=== PATIENT | male | born 1965 | race Caucasian/White ===

== ENCOUNTER 2023-03-21 18:36 | Emergency (ER) | payer MEDICAID ==
[~2023-03-21] VITALS: Ht 165.1 cm; Wt 89.4 kg
[2023-03-21] MEDS ORDERED: TDAP [DIPH/PERTUSSIS/TET] 0.5 ML VIAL IM ONE ×2 (19:11→19:30)
[2023-03-21] MEDS ORDERED: LIDOCAINE 1% INJ 50 ML MDV IJ ONE (20:26)
[2023-03-21] MEDS ORDERED: AMOX-430 PO (21:08)
[2023-03-21 21:50] VITALS: BP 123/81; TEMP 98; O2SAT 99
== END 2023-03-21 21:51 | disposition home or self-care (01) ==
LOC: ER 19:50
DX: S61.411A Laceration without foreign body of right hand, initial encounter (principal); W54.0XXA Bitten by dog, initial encounter; Y93.89 Activity, other specified; Y92.89 Other specified places as the place of occurrence of the external cause; Y99.0 Civilian activity done for income or pay
CPT/HCPCS: 12002; 73130; 90471; 90715; 99283; A6403; J3490

== ENCOUNTER 2024-08-31 21:12 | Emergency (ER) | payer MEDICAID ==
[~2024-08-31] VITALS: Ht 172.7 cm; Wt 93.0 kg
[~2024-08-31 21:12] MED LIST: AMOX-430 PO
[2024-08-31 22:27] VITALS: BP 118/79; TEMP 98.3; O2SAT 99
[2024-08-31] MEDS ORDERED: PHEN28OI9 RC (23:07)
[2024-08-31] MEDS ORDERED: POLY119P PO (23:07)
== END 2024-08-31 23:16 | disposition home or self-care (01) ==
LOC: ER 21:16
DX: K64.9 Unspecified hemorrhoids (principal); K59.00 Constipation, unspecified

== ENCOUNTER 2024-11-07 18:58 | Emergency (ER) | payer OTHER, MEDICAID ==
[~2024-11-07] VITALS: Ht 165.1 cm; Wt 81.6 kg
[~2024-11-07 18:58] MED LIST changes: +PHEN28OI9 RC; +POLY119P PO
[2024-11-07 19:38] VITALS: BP 158/91; TEMP 97.8; O2SAT 97
[2024-11-07] MEDS ORDERED: KETO10TA2 PO (19:50)
[2024-11-07] MEDS ORDERED: BACL5TAB PO (19:50)
[2024-11-07] MEDS ORDERED: LIDO30AD10 TP (19:50)
== END 2024-11-07 20:45 | disposition home or self-care (01) ==
LOC: ER 19:04
DX: M54.50 Low back pain, unspecified (principal); M79.605 Pain in left leg; Z79.899 Other long term (current) drug therapy; Z95.1 Presence of aortocoronary bypass graft; V43.62XA Car passenger injured in collision with other type car in traffic accident, initial encounter; Y93.89 Activity, other specified; Y92.488 Other paved roadways as the place of occurrence of the external cause; Y99.8 Other external cause status